=== PATIENT | female | born 1960 | race Caucasian/White ===

== ENCOUNTER 2017-04-07 15:46 | Emergency (ER) | payer MEDICAID ==
[~2017-04-07] VITALS: Ht 167.6 cm; Wt 108.0 kg
[~2017-04-07 15:46] MED LIST: AMOXICILLIN/PO500 MG PO; AMOXICILLIN500 MG PO; BACTRIM DS1 TAB PO; CELEXA40 M1 PO; CEPHALEXIN500 M1 PO; CIPROFLOXACN500 MG PO; CITALOPRAM40 MG PO; CYCLOBENZAPR10 MG OR; DIFLUCAN150 MG PO; FLEXERIL PO; HUMULIN SC; HYDROCO/APAP1 TA9 PO; HYDROXYCHLOROQ200 MG OR; HYDROXYCHLOROQ200 MG PO; INDOCIN50 MG/CAP PO; LANTUS100 MG/ML SC; LISINOPRIL20 M1 OR; LISINOPRIL20 MG PO; LOPID600 MG PO; LORTAB 10-325 M1 TAB PO; LUNESTA2 M2 OR; MELOXICAM7.5 MG PO; METFORMIN HCL1000 MG OR; METFORMIN HCL1000 MG PO; MULTI VIT PO; NAPROSYN500 MG PO; PERCOCET 10/31 COMBO PO; PRAVASTATIN SOD40 MG OR; PRAVASTATIN20 MG PO; PRAVASTATIN40 MG PO; ROBITUSSIN AC10 ML PO; STRATTERA25 MG PO; TRAMADOL HCL50 MG PO; ULTRAM50 M1 PO; WELLBUTRIN PO; WELLBUTRIN SR150 MG PO; WELLBUTRIN150 MG PO; XANAX0.5 MG PO
[2017-04-07] MEDS ORDERED: NOVOLIN R100 UNIT/M SC (16:19)
[2017-04-07 16:29] LABS: HEMOGLOBIN 13.7 g/dl (12.0-16.0); IMMATURE GRANULOCYTES 0.3 % (0.0-1.0); MEAN CORPUSCULAR HGB 28.1 pG CALC (26.0-32.0); MEAN CORPUSCULAR HGB CONC 33.4 g/L CALC (32.0-36.0); NEUT# 8.33 thou/uL (2.00-7.15); RED BLOOD COUNT 4.88 mill/uL (4.20-5.60); RED CELL DISTRI WIDTH 13.1 % (11.5-15.5)
[2017-04-07 16:35] LABS: ALBUMIN 4.6 g/dL (3.2-5.0); ALKALINE PHOSPHATASE 137 u/l (38-126); AMYLASE 32 u/l (30-110); ANION GAP 17 (6-22 (CALC)); BILIRUBIN, TOTAL 0.7 mg/dL (0.0-1.4); BUN 27 mg/dL (7-17); BUN/CREATININE RATIO 32 (12-20 (CALC)); CALCIUM 9.8 mg/dL (8.4-10.2); CARBON DIOXIDE 27 mmol/l (22-30); CHLORIDE 99 mmol/l (95-108); CREATININE 0.8 mg/dL (0.5-1.0); GFR > 60 ML/MIN (>=60 (CALC)); GFR FOR AFR.AMER. > 60 ML/MIN (>=60 (CALC)); GLUCOSE 245 mg/dL (65-105); LIPASE 31 u/l (23-300); POTASSIUM 4.2 mmol/l (3.5-5.1); SGOT/AST 20 u/l (14-36); SGPT/ALT 45 u/l (9-52); SODIUM 139 mmol/l (137-146)
[2017-04-07 16:43] LABS: URINE BILIRUBIN - DIPSTICK NEGATIVE (NEGATIVE); URINE BLOOD DIPSTICK TRACE-INTACT (NEGATIVE); URINE CLARITY TURBID; URINE COLOR YELLOW; URINE GLUCOSE - DIPSTICK 250 mg/dL (NEGATIVE); URINE KETONE NEGATIVE (NEGATIVE); URINE PROTEIN - DIPSTICK TRACE mg/dL (NEG-TRACE); URINE UROBILINOGEN - DIPSTICK 0.2 E.U./dL (0.2)
[2017-04-07 16:45] LABS: URINE LEUK ESTERASE SMALL (NEGATIVE); URINE NITRITE - DIPSTICK POSITIVE (Negative)
[2017-04-07 16:47] LABS: MYOGLOBIN 83 ng/mL (0 - 62)
[2017-04-07] MEDS ORDERED: NITROFURANTN100 MG PO (16:48)
[2017-04-07 16:51] LABS: URINE BACTERIA MANY hpf; URINE MUCUS FEW hpf (NONE-FEW); URINE SQUAMOUS EPITHELIAL CELL FEW EPI/hpf (0-FEW)
[2017-04-07] MEDS ORDERED: CIPROFLOXACN500 MG PO (18:03)
[2017-04-07] MEDS ORDERED: ZOFRAN ODT4 MG PO (18:03)
[2017-04-07] MEDS ORDERED: PREVACID30 M3 PO (18:03)
[2017-04-07 18:40] VITALS: BP 114/67
== END 2017-04-07 18:49 | disposition home or self-care (01) | DRG 445 ==
LOC: ED 15:46
PROVIDERS: Emergency Medicine
DX: K80.20 Calculus of gallbladder without cholecystitis without obstruction (principal); N39.0 Urinary tract infection, site not specified; I10 Essential (primary) hypertension; E11.9 Type 2 diabetes mellitus without complications; B96.20 Unspecified Escherichia coli [E. coli] as the cause of diseases classified elsewhere; M79.7 Fibromyalgia; Z79.4 Long term (current) use of insulin
CPT/HCPCS: Q9967

== ENCOUNTER 2017-07-14 23:38 | Emergency (ER) | payer MEDICAID ==
[~2017-07-14] VITALS: Ht 167.6 cm; Wt 107.2 kg
[~2017-07-14 23:38] MED LIST changes: +NITROFURANTN100 MG PO; +NOVOLIN R100 UNIT/M SC; +PREVACID30 M3 PO; +ZOFRAN ODT4 MG PO
[2017-07-15] MEDS ORDERED: GENTAMICIN0.3 % OS (00:31)
[2017-07-15 00:40] VITALS: BP 128/79
== END 2017-07-15 00:40 | disposition home or self-care (01) | DRG 125 ==
LOC: ED 23:38
DX: H10.9 Unspecified conjunctivitis (principal)

== ENCOUNTER 2017-07-31 20:44 | Emergency (ER) | payer MEDICAID ==
[~2017-07-31] VITALS: Ht 167.6 cm; Wt 105.8 kg
[~2017-07-31 20:44] MED LIST changes: +GENTAMICIN0.3 % OS; +LANTUS100 UNIT/M SC
[2017-07-31] MEDS ORDERED: HYDROXYCHLOR200 MG PO (21:09)
[2017-07-31] MEDS ORDERED: METFORMIN500 M2 PO (21:11)
[2017-07-31] MEDS ORDERED: LISINOP/HCTZ1 TA2 PO (21:11)
[2017-07-31] MEDS ORDERED: ATORVASTATIN CA40 MG PO (21:12)
[2017-07-31] MEDS ORDERED: BUPROPION HCL300 MG PO (21:13)
[2017-07-31] MEDS ORDERED: AMITRIPTYLIN100 MG PO (21:13)
[2017-07-31] MEDS ORDERED: PERCOCET 5/325M1 TAB PO (22:03)
[2017-07-31 22:26] VITALS: BP 117/71
== END 2017-07-31 22:26 | disposition home or self-care (01) | DRG 554 ==
LOC: ED 20:44
DX: M19.042 Primary osteoarthritis, left hand (principal); M79.641 Pain in right hand; M79.642 Pain in left hand

== ENCOUNTER 2017-08-25 10:10 | Emergency (ER) | payer MEDICAID ==
[~2017-08-25] VITALS: Ht 167.6 cm; Wt 106.0 kg
[~2017-08-25 10:10] MED LIST changes: +AMITRIPTYLIN100 MG PO; +ATORVASTATIN CA40 MG PO; +BUPROPION HCL300 MG PO; +HYDROXYCHLOR200 MG PO; +LISINOP/HCTZ1 TA2 PO; +METFORMIN500 M2 PO; +PERCOCET 5/325M1 TAB PO
[2017-08-25] MEDS ORDERED: MOTRIN400 MG PO (11:09)
[2017-08-25 11:15] VITALS: BP 121/78
== END 2017-08-25 11:15 | disposition home or self-care (01) | DRG 556 ==
LOC: ED 10:10
PROC: 2W3KX1Z Immobilization of Left Finger using Splint (ICD-10-PCS; principal; 2017-08-25)
DX: M79.645 Pain in left finger(s) (principal); E11.9 Type 2 diabetes mellitus without complications; I10 Essential (primary) hypertension; M79.7 Fibromyalgia; W01.198A Fall on same level from slipping, tripping and stumbling with subsequent striking against other object, initial encounter; Y92.002 Bathroom of unspecified non-institutional (private) residence as the place of occurrence of the external cause

== ENCOUNTER 2017-08-31 17:14 | Emergency (ER) | payer MEDICAID ==
[~2017-08-31] VITALS: Ht 167.6 cm; Wt 95.0 kg
[~2017-08-31 17:14] MED LIST changes: +MOTRIN400 MG PO
[2017-08-31] MEDS ORDERED: MOTRIN800 MG PO (17:24)
[2017-08-31] MEDS ORDERED: TRAMADOL HYDROC50 MG PO (17:24)
[2017-08-31 18:10] VITALS: BP 149/74
== END 2017-08-31 18:10 | disposition home or self-care (01) | DRG 605 ==
LOC: ED 17:14
DX: S40.011A Contusion of right shoulder, initial encounter (principal); W01.0XXA Fall on same level from slipping, tripping and stumbling without subsequent striking against object, initial encounter; Y93.01 Activity, walking, marching and hiking; Y92.007 Garden or yard of unspecified non-institutional (private) residence as the place of occurrence of the external cause

== ENCOUNTER 2017-12-15 11:00 | Emergency (ER) | payer MEDICAID ==
[~2017-12-15] VITALS: Ht 167.6 cm; Wt 103.0 kg
[~2017-12-15 11:00] MED LIST changes: +MOTRIN800 MG PO; +TRAMADOL HYDROC50 MG PO
[2017-12-15 11:32] LABS: URINE BILIRUBIN - DIPSTICK NEGATIVE (NEGATIVE); URINE BLOOD DIPSTICK NEGATIVE (NEGATIVE); URINE COLOR YELLOW; URINE GLUCOSE - DIPSTICK >=1000 mg/dL (NEGATIVE); URINE KETONE NEGATIVE (NEGATIVE); URINE PROTEIN - DIPSTICK NEGATIVE (NEG-TRACE); URINE UROBILINOGEN - DIPSTICK 0.2 E.U./dL (0.2)
[2017-12-15 11:37] LABS: URINE CLARITY CLOUDY; URINE LEUK ESTERASE SMALL (NEGATIVE); URINE NITRITE - DIPSTICK POSITIVE (Negative)
[2017-12-15 11:46] LABS: URINE BACTERIA MANY hpf; URINE SQUAMOUS EPITHELIAL CELL FEW EPI/hpf (0-FEW); URINE WBC 20-50 WBC/hpf (0-5)
[2017-12-15] MEDS ORDERED: SMZ-TMP DS1 TAB PO (11:57)
[2017-12-15] MEDS ORDERED: PYRIDIUM200 MG PO (11:57)
[2017-12-15 12:05] VITALS: BP 158/77
== END 2017-12-15 12:03 | disposition home or self-care (01) | DRG 690 ==
LOC: ED 11:00
PROVIDERS: Emergency Medicine
DX: N39.0 Urinary tract infection, site not specified (principal); B96.20 Unspecified Escherichia coli [E. coli] as the cause of diseases classified elsewhere; M54.5 Low back pain; R30.0 Dysuria; R35.0 Frequency of micturition

== ENCOUNTER 2018-01-02 14:48 | Inpatient (IN) | payer MEDICAID ==
[~2018-01-02] VITALS: Ht 165.1 cm; Wt 103.0 kg
[~2018-01-02 14:48] MED LIST changes: +PYRIDIUM200 MG PO; +SMZ-TMP DS1 TAB PO
--- NOTE | 2018-01-02 14:55 | NUR ---
PATIENT AMBULATED TO ROOM WITH STEADY GAIT AND PHYSICIAN NOTIFIED OF PATIENT STATUS
[2018-01-02 16:04] LABS: URINE BILIRUBIN - DIPSTICK NEGATIVE (NEGATIVE); URINE BLOOD DIPSTICK LARGE (NEGATIVE); URINE COLOR YELLOW; URINE GLUCOSE - DIPSTICK >=1000 mg/dL (NEGATIVE); URINE KETONE NEGATIVE (NEGATIVE); URINE NITRITE - DIPSTICK NEGATIVE (Negative); URINE PROTEIN - DIPSTICK 100 mg/dL (NEG-TRACE); URINE SPECIFIC GRAVITY 1.025; URINE UROBILINOGEN - DIPSTICK 0.2 E.U./dL (0.2)
[2018-01-02 16:06] LABS: URINE CLARITY CLOUDY; URINE LEUK ESTERASE SMALL (NEGATIVE)
[2018-01-02 16:10] LABS: HEMATOCRIT 35.9 % (37.0-47.0); HEMOGLOBIN 12.1 g/dl (12.0-16.0); IMMATURE GRANULOCYTES 0.3 % (0.0-1.0); MEAN CELL VOLUME 82.3 fL CALC (80.0-100.0); MEAN CORPUSCULAR HGB 27.8 pG CALC (26.0-32.0); MEAN CORPUSCULAR HGB CONC 33.7 g/L CALC (32.0-36.0); NEUT# 9.36 thou/uL (2.00-7.15); RED BLOOD COUNT 4.36 mill/uL (4.20-5.60); RED CELL DISTRI WIDTH 12.6 % (11.5-15.5)
[2018-01-02 16:13] LABS: URINE BACTERIA FEW hpf; URINE SQUAMOUS EPITHELIAL CELL FEW EPI/hpf (0-FEW); URINE WBC >100 WBC/hpf (0-5)
[2018-01-02 16:22] LABS: ALBUMIN 3.7 g/dL (3.2-5.0); ALKALINE PHOSPHATASE 142 u/l (38-126); ANION GAP 18 (6-22 (CALC)); BILIRUBIN, TOTAL 0.4 mg/dL (0.0-1.4); BUN 18 mg/dL (7-17); BUN/CREATININE RATIO 25 (12-20 (CALC)); CARBON DIOXIDE 24 mmol/l (22-30); CHLORIDE 100 mmol/l (95-108); CREATININE 0.7 mg/dL (0.5-1.0); GFR > 60 ML/MIN (>=60 (CALC)); GFR FOR AFR.AMER. > 60 ML/MIN (>=60 (CALC)); LIPASE 40 u/l (23-300); SGOT/AST 20 u/l (14-36); SGPT/ALT 42 u/l (9-52); SODIUM 138 mmol/l (137-146); TOTAL PROTEIN 6.6 g/dL (6.3-8.2)
--- NOTE | 2018-01-02 17:30 | NUR ---
PT HAS RECEIVED TORADOL AND ZOFRAN AND IVF UPON ARRIVAL. LATER, PT RECEIVED ROCEPHIN FOR UTI. PT AWARE OF POSSIBLE ADMISSION.
[2018-01-02] MEDS ORDERED: NABUMETONE500 MG PO (17:59)
[2018-01-02] MEDS ORDERED: CYMBALTA30 MG PO (18:00)
--- NOTE | 2018-01-02 18:10 | NUR ---
PT TRANSFERRED TO FLOOR VIA STRETCHER ACCOMPANIED BY JARODRN;PT AMBULATED WITH A STEADY GAIT TO STANDING SCALE AND BEDSIDE;VS AND WT OBTAINED;PT REPORTS HAVING A UTI FOR A FEW WEEKS,SHE WAS STARTED ON ABX FROM [facility] ER BUT S/S CONTINUED;PT VOICES NO COMPLAINTS OF PAIN OR DISCOMFORTS AND IS EDUCATED ON PAIN SCALE AND REPORTING;A&O X3;ASSESSMENT COMPLETED;RESPIRATIONS EVEN AND UNLABORED ON RA,CLEAR DIMINISHED LUNG SOUNDS NOTED;ABDOMEN DISTENDED/SOFT ON PALPATION AND HYPO ACTIVE IN ALL 4 QUADRANTS;WEAK PEDAL PULSES NOTED;#20G TO LAC INFUSING A NS BOLUS WITH EASE,SITE APPEARS HEALTHY;PT DENIES A GOWN AT THIS TIME;LAST BM 01/02/18;SAFETY PRECAUTIONS REINFORCED;PT ENCOURAGED TO CALL FOR ASSISTANCE IF NEEDED;POC DISCUSSED;BED IN THE LOWEST POSITION WITH CALL LIGHT IN REACH;WILL CONTINUE TO MONITOR
--- NOTE | 2018-01-02 18:15 | NUR ---
PT TAKEN TO ROOM 283 BY WHEELCHAIR. NO DISTRESS NOTED.
[2018-01-02 18:50] VITALS: BP 150/82
--- NOTE | 2018-01-02 19:00 | NUR ---
RECEIVED CHANGE OF SHIFY REPORT FROM SY CARABALLO. PATIENT ALERT AND ORIENTED AND AMBULATING IN ROOM. NO APPARENT ACUTE DISTRES NOTED. WILL CONTINUE TO MONITOR.
--- NOTE | 2018-01-03 | NUR ---
PATIENT RESTING QUIETLY IN BED WITH EYES CLOSED AND APPEARS TO BE ASLEEP. RESP EVEN AND NON-LABORED. NO APPARENT ACUTE DISTRESS NOTED. WILL CONTINUE TO MONITOR.
--- NOTE | 2018-01-03 04:00 | NUR ---
PATIENT RESTING QUIETLY AT THIS TIME. NO APPARENT ACUTE CHANGES NOTED IN PT'S CONDITION.
[2018-01-03 04:20] VITALS: BP 130/77
[2018-01-03 06:37] LABS: HEMATOCRIT 36.9 % (37.0-47.0); HEMOGLOBIN 12.2 g/dl (12.0-16.0); MEAN CELL VOLUME 83.9 fL CALC (80.0-100.0); MEAN CORPUSCULAR HGB 27.7 pG CALC (26.0-32.0); MEAN CORPUSCULAR HGB CONC 33.1 g/L CALC (32.0-36.0); RED BLOOD COUNT 4.4 mill/uL (4.20-5.60); RED CELL DISTRI WIDTH 12.7 % (11.5-15.5)
[2018-01-03 06:56] LABS: ANION GAP 14 (6-22 (CALC)); BUN 15 mg/dL (7-17); BUN/CREATININE RATIO 22 (12-20 (CALC)); CARBON DIOXIDE 27 mmol/l (22-30); CHLORIDE 107 mmol/l (95-108); CREATININE 0.7 mg/dL (0.5-1.0); GFR > 60 ML/MIN (>=60 (CALC)); GFR FOR AFR.AMER. > 60 ML/MIN (>=60 (CALC)); SODIUM 144 mmol/l (137-146)
[2018-01-03 07:45] VITALS: BP 145/60
--- NOTE | 2018-01-03 07:45 | NUR ---
PT IS RELAXING IN BED WITH NO DISTRESS NOTED. IV SITE IS FREE FROM REDNESS OR EDEMA. CONTINUE TO OBSERVE AND MONITOR. HR IS REG, PULSES ARE STRONG X4, ABD IS SOFT WITH ACTIVE BS
--- NOTE | 2018-01-03 12:45 | NUR ---
PT IS RELAXING IN BED WITH NO DISTRESS NOTED. IV SITE IS FREE FROM REDNESS OR EDEMA. CONTINUE TO OBSERVE AND MONITOR.
[2018-01-03 16:31] VITALS: BP 157/79
--- NOTE | 2018-01-03 16:44 | NUR ---
PT IS RELAXING IN BED FAMILY IN THE ROOM WITH HER AND ALSO HER DOG WHO HAS PAPERS. IV SITE IS FREE FROM REDNESS OR EDEMA . FAMILY WILL TAKE DOG BACK HOME. CONTINUE TO OSBERVE AND MONITOR.
[2018-01-03 19:14] VITALS: BP 142/77
--- NOTE | 2018-01-03 19:45 | NUR ---
PT.IS IN BED W/FAMILY SITTING ON END OF BED VISITING, IV FLUIDS ARE RUNNING NS@125. PT.EXPRESSES CONCERN THAT THE DOCTOR HAS NOT CONTINUED HER HOME MEDICATIONS, SHE STATES THAT SHE MENTIONED THIS TO THE DOCTOR EARLIER THIS DAY. PT.DENIES ANY OTHER NEEDS AT THIS TIME. LEFT PT.SITTING ON SIDE OF BED W/CALL LIGHT AT SIDE.
--- NOTE | 2018-01-03 23:09 | NUR ---
PT.CALLED TO REQUEST SOMETHING TO EAT/PROVIDED SNACK AT THIS TIME.
--- NOTE | 2018-01-04 03:21 | NUR ---
PT.IS SLEEPING W/TV AND LIGHTS OFF AT THIS TIME, NO S/S OF DISTRESS, CALL LIGHT W/IN REACH
[2018-01-04 04:30] VITALS: BP 152/89
--- NOTE | 2018-01-04 04:50 | NUR ---
IV FLUIDS REPLENISHED, PT.IS SLEEPING SOUNDLY, BUT AWOKE TO MY VOICE AFTER A MINUTE. PT.DENIES ANY NEEDS, IV FLUIDS RUNNING, CALL LIGHT AT SIDE.
[2018-01-04 08:10] VITALS: BP 179/103
--- NOTE | 2018-01-04 08:10 | NUR ---
ASSESSMENT IS COMPLTED: IV SITE IS FREE FROM REDNESS OR EDEMA. HR IS REG, PULSES ARE STRONG X4,ABD IS SOFT WITH ACTIVE BS. CONTINUE TO OSBERVE AND MONITOR.
--- NOTE | 2018-01-04 12:15 | NUR ---
PT HAS BEEN RELAXING ON THE SIDE OF THE BED. CONTINUES WITH HER DOG ON THE BED WAS ABLE TO TAKE THE DOG OUT SIDE WITH ASSISTANCE FROM ADDING MACHINE OPERATOR. IV SITE IS FREE FROM REDNESS OR EDEMA. TOOK A SHOWER THIS AM. CONTINUE TO OBSERVE AND MONITOR.
[2018-01-04 15:25] VITALS: BP 148/94
--- NOTE | 2018-01-04 15:32 | NUR ---
PT IS RELAXING NOW SINCE PAIN MEDICATIONS WERE GIVEN. IV SITE IS FREE FROM REDNESS OR EDEMA.
--- NOTE | 2018-01-04 18:45 | NUR ---
PT IS SITTING UP ON THE SIDE OF THE BED, NO DISTRESS NOTED. IV SITE IS FREE FROM REDNESS OR EDEMA.
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
[2018-01-04 20:00] VITALS: BP 167/91
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
--- NOTE | 2018-01-05 00:08 | NUR ---
PT. MEDICATED FOR PAIN REPORTED AT A 7/10 IN HER BACK ON THE PAIN SCALE. IS AT BEDSIDE, THEY ARE SHOWING ME PICTURES OF THEIR 30 DOGS THAT THEY HAVE AT HOME. PT.LEFT SITTING ON SIDE OF BED W/ AT BEDSIDE AND DOG AT FOOT OF HER BED UNDER THE COVERS. CALL LIGHT IS W/IN REACH AND PT.INSTRUCTED TO CALL IF ANY NEEDS ARISE.
[2018-01-05 04:18] VITALS: BP 157/101
--- NOTE | 2018-01-05 04:18 | NUR ---
PT.V/S ASSESSED AND PT.BACK TO SLEEP AT THIS TIME. CALL LIGHT IS AT SIDE AND NO S/S OF DISTRESS.
[2018-01-05 05:31] LABS: HEMATOCRIT 33.6 % (37.0-47.0); HEMOGLOBIN 11.5 g/dl (12.0-16.0); MEAN CELL VOLUME 83.6 fL CALC (80.0-100.0); MEAN CORPUSCULAR HGB 28.6 pG CALC (26.0-32.0); MEAN CORPUSCULAR HGB CONC 34.2 g/L CALC (32.0-36.0); RED BLOOD COUNT 4.02 mill/uL (4.20-5.60); RED CELL DISTRI WIDTH 12.5 % (11.5-15.5)
--- NOTE | 2018-01-05 05:49 | NUR ---
PT.IV ANTIBIOTIC THERAPY ADMINISTERED AT THIS TIME. PT.REQUESTED PAIN MEDICATION. DENIES ANY OTHER NEEDS.
[2018-01-05 05:58] LABS: ALBUMIN 3.4 g/dL (3.2-5.0); ANION GAP 17 (6-22 (CALC)); BILIRUBIN, TOTAL 0.3 mg/dL (0.0-1.4); BUN 17 mg/dL (7-17); BUN/CREATININE RATIO 20 (12-20 (CALC)); CARBON DIOXIDE 25 mmol/l (22-30); CHLORIDE 105 mmol/l (95-108); CREATININE 0.8 mg/dL (0.5-1.0); GFR > 60 ML/MIN (>=60 (CALC)); GFR FOR AFR.AMER. > 60 ML/MIN (>=60 (CALC)); POTASSIUM 3.8 mmol/l (3.5-5.1); SGOT/AST 20 u/l (14-36); SGPT/ALT 36 u/l (9-52); SODIUM 142 mmol/l (137-146); TOTAL PROTEIN 6.4 g/dL (6.3-8.2)
[2018-01-05 06:09] LABS: ALKALINE PHOSPHATASE 126 u/l (38-126)
--- NOTE | 2018-01-05 06:09 | NUR ---
PT.MEDICATED FOR PAIN REPORTED @7/10 ON PAIN SCALE. PT.IS AWAKE AND WATCHING TV W/LIGHTS ON.
[2018-01-05 07:50] VITALS: BP 190/82
--- NOTE | 2018-01-05 07:50 | NUR ---
PT HAS BEEN RESTING IN BED WITH NO DISTRESS NOTED. IV SITE IS FREE FROM REDNESS OR EDEMA. CONTINUE TO OSBERVE ADN MONITOR. HR IS REG, PULSES ARE STRONG. ABD IS SOFT WITH ACTIVE BS.
[2018-01-05 10:31] VITALS: BP 155/79
--- NOTE | 2018-01-05 12:00 | NUR ---
PT IS RELAXING IN BED , DOG REMAINS IN THE ROOM. IV SITE IS FREE FROM REDNESS OR EDEMA. FAMILY DID VISIT WITH PT THIS AM.
[2018-01-05 15:10] VITALS: BP 128/79
--- NOTE | 2018-01-05 16:00 | NUR ---
PT IS RELAXING IN BED WITH MO DISTRESS NOTED. IV SITE IS FREE FROM REDNESS OR EDEMA.
--- NOTE | 2018-01-05 16:14 | NUR ---
PT 'S IV SITE WAS LOOSE , RECOMMENDED TO BE CHANGED. PT AGREED. NEW IV SITE PLACED IN RAC #22 PT TOLERATED WELL.
--- NOTE | 2018-01-05 16:30 | NUR ---
PT IS RELAXING IN BED WITH NO DISTRESS NOTED. IV SITE IS FREE FROM REDNESS OR EDEMA.
[2018-01-05 18:48] VITALS: BP 145/82
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
--- NOTE | 2018-01-05 23:57 | NUR ---
PT.MEDICATED W/ANTIBIOTIC IV THERAPY ORDERED. PT.IS SITTING ON SIDE OF THE BED WORKING ON COMPUTER. PT.DENIES ANY NEEDS AT THIS TIME. V/S ARE BEING ASSESSED, WILL FOLLOW-UP NEEDED.
--- NOTE | 2018-01-06 01:19 | NUR ---
PT.MEDICATED FOR PAIN 04/15 IN HER BACK. LIGHTS ARE OFF AND TV ON, PT.APPEARS TO BE TRYING TO SLEEP. BED IN LOWEST POSITION AND IV FLUIDS ARE RUNNING ORDERED.
[2018-01-06 04:00] VITALS: BP 111/66
--- NOTE | 2018-01-06 04:55 | NUR ---
PT.IS IN BED SLEEPING, REPORTS HAVING SLEPT WELL OVER NIGHT. V/S ASSESSED AND IV PUMP CLEARED. PT.DENIES ANY NEEDS AT THIS TIME, CALL LIGHT IS W/IN REACH.
[2018-01-06 05:21] LABS: HEMATOCRIT 33.5 % (37.0-47.0); HEMOGLOBIN 11.2 g/dl (12.0-16.0); IMMATURE GRANULOCYTES 0.4 % (0.0-1.0); MEAN CELL VOLUME 83.3 fL CALC (80.0-100.0); MEAN CORPUSCULAR HGB 27.9 pG CALC (26.0-32.0); MEAN CORPUSCULAR HGB CONC 33.4 g/L CALC (32.0-36.0); NEUT# 4.5 thou/uL (2.00-7.15); RED BLOOD COUNT 4.02 mill/uL (4.20-5.60); RED CELL DISTRI WIDTH 12.7 % (11.5-15.5)
--- NOTE | 2018-01-06 07:00 | NUR ---
BEDSIDE REPORT RECEIVED BY DOMINICK. PT IS RESTING IN BED AND DENIES NEEDS AT THIS TIME.CALL LIGHT IN REACH.
[2018-01-06 07:48] VITALS: BP 164/75
--- NOTE | 2018-01-06 08:00 | NUR ---
PT IS SITTING IN RECLINER. ASSESSMENT DONE. LUNG SOUND CLEAR/DIMINISHED. PT DENIES PAIN AT THIS TIME. NS INFUSING WELL. SAFETY PRECAUTIONS REINFORCED AND CALL LIGHT IN REACH.
--- NOTE | 2018-01-06 12:00 | NUR ---
PT IS SITTING IN THE SIDE OF THE BED EATING HER LUNCH WITH NO S/S OF DISTRESS NOTED. PT STATED THAT SHE HAS BACK PAIN BUT IS REFUSING PAIN MEDICATION AT THIS TIME. PT DENIES ANY OTHER NEEDS AT THIS TIME. PT DOG SERVICE AT SIDE. CALL LIGHT IN REACH.
--- NOTE | 2018-01-06 16:28 | NUR ---
PT IS ON HER LEFT SIDE IN BED. MEDICATED PT WITH LORTAB FOR PAIN SEE EMAR. PT DENIES ANY OTHER NEEDS AT THIS TIME. CALL LIGHT IN REACH.
[2018-01-06 17:04] VITALS: BP 158/75
--- NOTE | 2018-01-06 19:30 | NUR ---
PATIENT SITTING ON THE SIDE OF THE BED-AWAKE ALERT AND ORIENTEDX3. IVF NS PATENT AND INFUSING VIA RIGHT AC SITE. SITE APPEARS HEALTHY AT THIS TIME. PATIENT DENIES ANY DIFFICULTY OR PAIN WITH URINATION. CALL LIGHT IN REACH. WILL CONT TO MONITOR.
[2018-01-06 20:16] VITALS: BP 158/87
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
--- NOTE | 2018-01-06 23:27 | NUR ---
PATIENT RESTING IN BED POSITIONED ON HER SIDE WITH EYES CLOSED. APPEARS SLEEPING IN NO ACUTE DISTRESS. IVF PATENT AND INFUSING AT 125CC/HR VIA RIGHT HAND SITE. SITE APPEARS HEALTHY AT THIS TIME. CALL LIGHT IN REACH. WILL CONT TO MONITOR.
--- NOTE | 2018-01-06 23:30 | NUR ---
PATIENT RESTING IN BED ON HER SIDE WITH EYES CLOSED. APPEARS SLEEPING IN NO ACUTE DISTRESS. IVF PATENT AND INFUSING AT 125CC/HR VIA RIGHT AC SITE-SITE APPEARS HEALTHY AT THIS TIME. CALL LIGHT IN REACH. WILL CONT TO MONITR.
[2018-01-07 00:17] VITALS: BP 139/72
--- NOTE | 2018-01-07 04:00 | NUR ---
PATIENT APPEARS SLEEPING AT THIS TIME. IVF PATENT AND INFUSING AT 125CC/HR VIA RIGHT AC SITE. CALL LIGHT IN REACH. WILL CONT TO MONITOR.
[2018-01-07 04:16] VITALS: BP 143/80
[2018-01-07 05:39] LABS: HEMATOCRIT 36.7 % (37.0-47.0); HEMOGLOBIN 11.9 g/dl (12.0-16.0); IMMATURE GRANULOCYTES 0.6 % (0.0-1.0); MEAN CELL VOLUME 85.7 fL CALC (80.0-100.0); MEAN CORPUSCULAR HGB 27.8 pG CALC (26.0-32.0); MEAN CORPUSCULAR HGB CONC 32.4 g/L CALC (32.0-36.0); NEUT# 2.93 thou/uL (2.00-7.15); RED BLOOD COUNT 4.28 mill/uL (4.20-5.60); RED CELL DISTRI WIDTH 12.8 % (11.5-15.5)
[2018-01-07 05:50] LABS: ANION GAP 16 (6-22 (CALC)); BUN 12 mg/dL (7-17); BUN/CREATININE RATIO 18 (12-20 (CALC)); CARBON DIOXIDE 25 mmol/l (22-30); CHLORIDE 104 mmol/l (95-108); CREATININE 0.7 mg/dL (0.5-1.0); GFR > 60 ML/MIN (>=60 (CALC)); GFR FOR AFR.AMER. > 60 ML/MIN (>=60 (CALC)); MAGNESIUM 1.7 mg/dL (1.6-2.3); SODIUM 141 mmol/l (137-146)
--- NOTE | 2018-01-07 07:15 | NUR ---
REPORT RECEIVED BY ANGELICA BAUER. PT IS RESTING IN BED WITH NO S/S OF DISTRESS NOTED. CALL LIGHT IN REACH.
[2018-01-07 07:56] VITALS: BP 166/81
--- NOTE | 2018-01-07 08:00 | NUR ---
PT IS SITTING IN THE SIDE OF THE BED. ASSESSMENT DONE. LUNG SOUND CLEAR/DIMINISHED. #22 RAC THAT APPEARS HEALTHY AND NS INFUSING WELL. PT STATED THAT SHE HAS BACK PAIN BUT REFUSED PAIN MEDICATION AT THIS TIME. DOG SERVICE AT SIDE. REINFORCED SAFETY PRECAUTIONS AND CALL LIGHT IN REACH.
[2018-01-07 08:17] VITALS: BP 166/81
--- NOTE | 2018-01-07 12:00 | NUR ---
PT IS SITTING IN THE SIDE OF THE BED EATING HER LUNCH. PT DENIES NEEDS AT THIS TIME. CALL LIGHT IN REACH.
[2018-01-07] MEDS ORDERED: INVANZ1 GM IV (13:15)
--- NOTE | 2018-01-07 13:15 | NUR ---
QUINTIN FROM X-RAY CALLED RE: PT REFUSED PICC LINE. PT COMING BACK TO ROOM.
--- NOTE | 2018-01-07 14:55 | NUR ---
Discharge instructions given. Patient verbalizes understanding of same. Discharged in stable condition via Wheelchair to Home with staff. All belongings sent with pt.
[2018-01-08] MEDS ORDERED: LORTAB 1010 MG PO (19:46)
[2018-01-08] MEDS ORDERED: FLEXERIL PO (19:46)
== END 2018-01-07 15:00 | disposition home or self-care (01) | DRG 690 ==
LOC: ED 14:48 → ED-I 17:10 → ED 17:30 → MS2 17:31
PROVIDERS: Family Medicine; Internal Medicine; Nurse Practitioner Family; ADMIT Internal Medicine; ATTEND Internal Medicine
DX: N12 Tubulo-interstitial nephritis, not specified as acute or chronic (principal); E11.65 Type 2 diabetes mellitus with hyperglycemia; B96.20 Unspecified Escherichia coli [E. coli] as the cause of diseases classified elsewhere; F43.10 Post-traumatic stress disorder, unspecified; F32.9 Major depressive disorder, single episode, unspecified; I10 Essential (primary) hypertension; M19.90 Unspecified osteoarthritis, unspecified site; E78.5 Hyperlipidemia, unspecified; Z91.14 Patient's other noncompliance with medication regimen; Z16.12 Extended spectrum beta lactamase (ESBL) resistance; Z79.84 Long term (current) use of oral hypoglycemic drugs
CPT/HCPCS: J1335; Q9967

== ENCOUNTER 2018-01-08 18:33 | Emergency (ER) | payer MEDICAID ==
[~2018-01-08] VITALS: Ht 165.1 cm; Wt 103.2 kg
[~2018-01-08 18:33] MED LIST changes: +CYMBALTA30 MG PO; +INVANZ1 GM IV; +NABUMETONE500 MG PO
[2018-01-08] MEDS ORDERED: LORTAB 1010 MG PO (19:46)
[2018-01-08] MEDS ORDERED: FLEXERIL PO (19:46)
[2018-01-08 20:10] VITALS: BP 155/82
== END 2018-01-08 20:10 | disposition home or self-care (01) | DRG 563 ==
LOC: ED 18:33
DX: S83.92XA Sprain of unspecified site of left knee, initial encounter (principal); M17.11 Unilateral primary osteoarthritis, right knee; E11.9 Type 2 diabetes mellitus without complications; I10 Essential (primary) hypertension; Y92.009 Unspecified place in unspecified non-institutional (private) residence as the place of occurrence of the external cause; W18.30XA Fall on same level, unspecified, initial encounter

== ENCOUNTER 2018-02-04 11:52 | Emergency (ER) | payer MEDICAID ==
[~2018-02-04] VITALS: Ht 165.1 cm; Wt 100.2 kg
[~2018-02-04 11:52] MED LIST changes: +LORTAB 1010 MG PO
[2018-02-04 12:51] LABS: HEMATOCRIT 38.3 % (37.0-47.0); HEMOGLOBIN 12.8 g/dl (12.0-16.0); IMMATURE GRANULOCYTES 0.4 % (0.0-1.0); MEAN CELL VOLUME 82.4 fL CALC (80.0-100.0); MEAN CORPUSCULAR HGB 27.5 pG CALC (26.0-32.0); MEAN CORPUSCULAR HGB CONC 33.4 g/L CALC (32.0-36.0); NEUT# 7.2 thou/uL (2.00-7.15); RED BLOOD COUNT 4.65 mill/uL (4.20-5.60); RED CELL DISTRI WIDTH 12.8 % (11.5-15.5)
[2018-02-04 13:02] LABS: INFLUENZA A NONE DETECTED (NONE DETECT); INFLUENZA B NONE DETECTED (NONE DETECT)
[2018-02-04 13:06] LABS: ALBUMIN 3.8 g/dL (3.2-5.0); ALKALINE PHOSPHATASE 144 u/l (38-126); ANION GAP 20 (6-22 (CALC)); BILIRUBIN, TOTAL 0.7 mg/dL (0.0-1.4); BUN 21 mg/dL (7-17); BUN/CREATININE RATIO 20 (12-20 (CALC)); CARBON DIOXIDE 22 mmol/l (22-30); CHLORIDE 96 mmol/l (95-108); GFR 57 ML/MIN (>=60 (CALC)); GFR FOR AFR.AMER. > 60 ML/MIN (>=60 (CALC)); POTASSIUM 4.2 mmol/l (3.5-5.1); SGOT/AST 29 u/l (14-36); SGPT/ALT 45 u/l (9-52); SODIUM 134 mmol/l (137-146); TOTAL PROTEIN 7.1 g/dL (6.3-8.2)
[2018-02-04 13:28] LABS: URINE BLOOD DIPSTICK MODERATE (NEGATIVE); URINE GLUCOSE - DIPSTICK 250 mg/dL (NEGATIVE); URINE KETONE 15 mg/dL (NEGATIVE); URINE NITRITE - DIPSTICK NEGATIVE (Negative); URINE PH 5.5 (4.5-8.0); URINE PROTEIN - DIPSTICK 100 mg/dL (NEG-TRACE); URINE SPECIFIC GRAVITY >=1.030
[2018-02-04 13:31] LABS: URINE BILIRUBIN - DIPSTICK SMALL (NEGATIVE); URINE CLARITY CLOUDY; URINE COLOR DK. YELLOW; URINE LEUK ESTERASE LARGE (NEGATIVE)
[2018-02-04 13:35] LABS: URINE BACTERIA MODERATE hpf; URINE EPITHELIAL CELLS MANY EPI/hpf (0-FEW); URINE WBC 50-100 WBC/hpf (0-5)
[2018-02-04] MEDS ORDERED: KEFLEX500 M1 PO (13:48)
[2018-02-04 14:11] VITALS: BP 138/72
== END 2018-02-04 14:11 | disposition home or self-care (01) | DRG 690 ==
LOC: ED 11:52
DX: N39.0 Urinary tract infection, site not specified (principal); M79.1 Myalgia; B96.1 Klebsiella pneumoniae [K. pneumoniae] as the cause of diseases classified elsewhere; Z16.12 Extended spectrum beta lactamase (ESBL) resistance; R50.9 Fever, unspecified; R05 Cough

== ENCOUNTER 2018-03-12 11:56 | Emergency (ER) | payer MEDICAID ==
[~2018-03-12] VITALS: Ht 165.1 cm; Wt 97.6 kg
[~2018-03-12 11:56] MED LIST changes: +KEFLEX500 M1 PO
[2018-03-12] MEDS ORDERED: HYDROCO/APAP1 TA9 PO (14:48)
[2018-03-12 15:03] VITALS: BP 123/71
== END 2018-03-12 15:05 | disposition home or self-care (01) | DRG 914 ==
LOC: ED 11:56
DX: S39.92XA Unspecified injury of lower back, initial encounter (principal); E11.9 Type 2 diabetes mellitus without complications; I10 Essential (primary) hypertension; F43.10 Post-traumatic stress disorder, unspecified; W16.012A Fall into swimming pool striking water surface causing other injury, initial encounter; Y93.H9 Activity, other involving exterior property and land maintenance, building and construction; Y92.008 Other place in unspecified non-institutional (private) residence as the place of occurrence of the external cause

== ENCOUNTER 2018-08-16 22:14 | Emergency (ER) | payer MEDICAID ==
[~2018-08-16] VITALS: Ht 165.1 cm; Wt 105.2 kg
[~2018-08-16 22:14] MED LIST changes: +FLEXERIL5 M1 PO; +HYDROXYCHLOR200 M1 PO; +LISINOPRIL5 MG PO; +PERCOGESI1 PO; +PREMPRO1 TAB PO
[2018-08-16 22:24] VITALS: BP 141/77
[2018-08-16] MEDS ORDERED: CIPROFLOXACN500 MG PO (22:28)
[2018-08-16] MEDS ORDERED: BACTRIM DS1 TAB PO (23:02)
== END 2018-08-16 23:10 | disposition home or self-care (01) ==
LOC: ED 22:14
DX: J01.90 Acute sinusitis, unspecified (principal); L03.031 Cellulitis of right toe; I10 Essential (primary) hypertension; E11.40 Type 2 diabetes mellitus with diabetic neuropathy, unspecified; F43.10 Post-traumatic stress disorder, unspecified; R05 Cough; R51 Headache; R09.81 Nasal congestion

== ENCOUNTER 2018-09-13 07:47 | Emergency (ER) | payer MEDICAID ==
[~2018-09-13] VITALS: Ht 165.1 cm; Wt 200.0 kg
[2018-09-13 08:49] LABS: HEMOGLOBIN 12.1 g/dl (12.0-16.0); IMMATURE GRANULOCYTES 0.4 % (0.0-5.0); MEAN CELL VOLUME 84.1 fL CALC (80.0-100.0); MEAN CORPUSCULAR HGB 27.5 pG CALC (26.0-32.0); MEAN CORPUSCULAR HGB CONC 32.7 g/L CALC (32.0-36.0); NEUT# 6.87 thou/uL (2.00-7.15); RED BLOOD COUNT 4.4 mill/uL (4.20-5.60); RED CELL DISTRI WIDTH 12.8 % (11.5-15.5)
[2018-09-13 09:03] LABS: ANION GAP 17 (6-22 (CALC)); BUN 26 mg/dL (7-17); BUN/CREATININE RATIO 30 (12-20 (CALC)); CARBON DIOXIDE 22 mmol/l (22-30); CHLORIDE 105 mmol/l (95-108); CREATININE 0.8 mg/dL (0.5-1.0); GFR > 60 ML/MIN (>=60 (CALC)); GFR FOR AFR.AMER. > 60 ML/MIN (>=60 (CALC)); POTASSIUM 4.3 mmol/l (3.5-5.1); SODIUM 140 mmol/l (137-146)
[2018-09-13 09:50] VITALS: BP 117/56
== END 2018-09-13 09:51 | disposition home or self-care (01) ==
LOC: ED 07:47
PROVIDERS: Family Medicine
DX: R42 Dizziness and giddiness (principal); I10 Essential (primary) hypertension; F43.10 Post-traumatic stress disorder, unspecified; E11.40 Type 2 diabetes mellitus with diabetic neuropathy, unspecified

== ENCOUNTER 2018-09-23 18:27 | Observation (INO) | payer MEDICAID ==
[~2018-09-23] VITALS: Ht 165.1 cm; Wt 101.0 kg
[2018-09-23 19:31] LABS: HEMATOCRIT 35.9 % (37.0-47.0); HEMOGLOBIN 12.1 g/dl (12.0-16.0); IMMATURE GRANULOCYTES 0.5 % (0.0-5.0); MEAN CELL VOLUME 82.2 fL CALC (80.0-100.0); MEAN CORPUSCULAR HGB 27.7 pG CALC (26.0-32.0); MEAN CORPUSCULAR HGB CONC 33.7 g/L CALC (32.0-36.0); NEUT# 11.34 thou/uL (2.00-7.15); RED BLOOD COUNT 4.37 mill/uL (4.20-5.60); RED CELL DISTRI WIDTH 12.8 % (11.5-15.5)
[2018-09-23 19:43] LABS: ALBUMIN 4.1 g/dL (3.2-5.0); ALKALINE PHOSPHATASE 164 u/l (38-126); AMYLASE 42 u/l (30-110); ANION GAP 12 (6-22 (CALC)); BILIRUBIN, TOTAL 0.5 mg/dL (0.0-1.4); BUN 20 mg/dL (7-17); BUN/CREATININE RATIO 30 (12-20 (CALC)); CARBON DIOXIDE 26 mmol/l (22-30); CHLORIDE 102 mmol/l (95-108); CREATININE 0.7 mg/dL (0.5-1.0); GFR > 60 ML/MIN (>=60 (CALC)); GFR FOR AFR.AMER. > 60 ML/MIN (>=60 (CALC)); LIPASE 18 u/l (23-300); POTASSIUM 4.4 mmol/l (3.5-5.1); SGOT/AST 20 u/l (14-36); SODIUM 136 mmol/l (137-146); TOTAL PROTEIN 7.8 g/dL (6.3-8.2)
[2018-09-23 19:55] LABS: MYOGLOBIN 103 ng/mL (0 - 62)
[2018-09-23 21:08] LABS: URINE BILIRUBIN - DIPSTICK NEGATIVE (NEGATIVE); URINE BLOOD DIPSTICK TRACE-LYSED (NEGATIVE); URINE COLOR YELLOW; URINE GLUCOSE - DIPSTICK >=1000 mg/dL (NEGATIVE); URINE KETONE NEGATIVE (NEGATIVE); URINE LEUK ESTERASE NEGATIVE (NEGATIVE); URINE PH 6.5 (4.5-8.0); URINE PROTEIN - DIPSTICK NEGATIVE (NEG-TRACE); URINE SPECIFIC GRAVITY 1.015; URINE UROBILINOGEN - DIPSTICK 0.2 E.U./dL (0.2)
[2018-09-23 21:09] LABS: URINE NITRITE - DIPSTICK POSITIVE (Negative)
[2018-09-23 21:17] VITALS: BP 138/76
[2018-09-23 21:20] LABS: URINE BACTERIA MODERATE hpf; URINE SQUAMOUS EPITHELIAL CELL FEW EPI/hpf (0-FEW)
[2018-09-24] VITALS (7 sets, daily range): BP systolic 126–183; BP diastolic 58–99
[2018-09-25 03:41] VITALS: BP 124/75
[2018-09-25 05:30] LABS: HEMATOCRIT 34.8 % (37.0-47.0); HEMOGLOBIN 11.3 g/dl (12.0-16.0); IMMATURE GRANULOCYTES 0.4 % (0.0-5.0); MEAN CELL VOLUME 84.9 fL CALC (80.0-100.0); MEAN CORPUSCULAR HGB 27.6 pG CALC (26.0-32.0); MEAN CORPUSCULAR HGB CONC 32.5 g/L CALC (32.0-36.0); NEUT# 4.47 thou/uL (2.00-7.15); RED BLOOD COUNT 4.1 mill/uL (4.20-5.60); RED CELL DISTRI WIDTH 13.1 % (11.5-15.5)
[2018-09-25 05:31] LABS: ALKALINE PHOSPHATASE 115 u/l (38-126); ANION GAP 13 (6-22 (CALC)); BILIRUBIN, TOTAL 0.2 mg/dL (0.0-1.4); BUN 20 mg/dL (7-17); BUN/CREATININE RATIO 30 (12-20 (CALC)); CARBON DIOXIDE 25 mmol/l (22-30); CHLORIDE 107 mmol/l (95-108); CREATININE 0.7 mg/dL (0.5-1.0); GFR > 60 ML/MIN (>=60 (CALC)); GFR FOR AFR.AMER. > 60 ML/MIN (>=60 (CALC)); MAGNESIUM 1.6 mg/dL (1.6-2.3); POTASSIUM 4.4 mmol/l (3.5-5.1); SGOT/AST 14 u/l (14-36); SODIUM 140 mmol/l (137-146); TOTAL PROTEIN 6.3 g/dL (6.3-8.2)
[2018-09-25 05:33] LABS: ALBUMIN 3.1 g/dL (3.2-5.0)
[2018-09-25 07:55] VITALS: BP 133/67
[2018-09-25 10:51] VITALS: BP 148/94
[2018-09-25] MEDS ORDERED: ZESTRIL/PRIN5 MG/TA1 PO (13:01)
[2018-09-25] MEDS ORDERED: KEFLEX500 MG PO ×2 (13:02→13:23)
== END 2018-09-25 13:29 | disposition home or self-care (01) ==
LOC: ED 18:27 → ED-I 20:00 → ED 20:20 → MS2 20:21
PROVIDERS: Internal Medicine Nephrology; ADMIT Internal Medicine; ATTEND Internal Medicine
DX: R07.89 Other chest pain (principal); N39.0 Urinary tract infection, site not specified; L03.031 Cellulitis of right toe; I10 Essential (primary) hypertension; E11.40 Type 2 diabetes mellitus with diabetic neuropathy, unspecified; E78.5 Hyperlipidemia, unspecified; F43.10 Post-traumatic stress disorder, unspecified; M19.90 Unspecified osteoarthritis, unspecified site; F41.1 Generalized anxiety disorder; B96.20 Unspecified Escherichia coli [E. coli] as the cause of diseases classified elsewhere; E66.9 Obesity, unspecified; Z68.37 Body mass index [BMI] 37.0-37.9, adult; R06.02 Shortness of breath
CPT/HCPCS: G0378; J1335

== ENCOUNTER 2018-10-25 16:14 | Emergency (ER) | payer MEDICAID ==
[~2018-10-25] VITALS: Ht 165.1 cm; Wt 102.0 kg
[~2018-10-25 16:14] MED LIST changes: +KEFLEX500 MG PO; +ZESTRIL/PRIN5 MG/TA1 PO
[2018-10-25 16:49] LABS: URINE BILIRUBIN - DIPSTICK NEGATIVE (NEGATIVE); URINE BLOOD DIPSTICK TRACE-INTACT (NEGATIVE); URINE COLOR YELLOW; URINE GLUCOSE - DIPSTICK NEGATIVE (NEGATIVE); URINE KETONE TRACE mg/dL (NEGATIVE); URINE LEUK ESTERASE TRACE (NEGATIVE); URINE NITRITE - DIPSTICK NEGATIVE (Negative); URINE PROTEIN - DIPSTICK 100 mg/dL (NEG-TRACE); URINE SPECIFIC GRAVITY >=1.030; URINE UROBILINOGEN - DIPSTICK 0.2 E.U./dL (0.2)
[2018-10-25 16:56] LABS: URINE BACTERIA FEW hpf; URINE SQUAMOUS EPITHELIAL CELL FEW EPI/hpf (0-FEW)
[2018-10-25] MEDS ORDERED: LISINOPRIL5 MG PO (16:56)
[2018-10-25] MEDS ORDERED: GABAPENTIN100 MG PO (16:56)
[2018-10-25] MEDS ORDERED: CYMBALTA30 MG PO (16:57)
[2018-10-25] MEDS ORDERED: ASPIRIN81 MG PO (16:57)
[2018-10-25] MEDS ORDERED: STRATTERA80 MG PO (16:58)
[2018-10-25] MEDS ORDERED: BUPROPION HYDR100 MG PO (16:58)
[2018-10-25] MEDS ORDERED: DIFLUCAN100 M1 PO (17:12)
[2018-10-25] MEDS ORDERED: CEPHALEXIN500 M1 PO (17:12)
[2018-10-25 17:42] VITALS: BP 132/82
== END 2018-10-25 17:42 | disposition home or self-care (01) ==
LOC: ED 16:14
PROVIDERS: Family Medicine
DX: S40.012A Contusion of left shoulder, initial encounter (principal); N39.0 Urinary tract infection, site not specified; I10 Essential (primary) hypertension; E11.40 Type 2 diabetes mellitus with diabetic neuropathy, unspecified; F43.10 Post-traumatic stress disorder, unspecified; M19.90 Unspecified osteoarthritis, unspecified site; W01.198A Fall on same level from slipping, tripping and stumbling with subsequent striking against other object, initial encounter; Y92.009 Unspecified place in unspecified non-institutional (private) residence as the place of occurrence of the external cause

== ENCOUNTER 2018-11-07 14:57 | Emergency (ER) | payer MEDICAID ==
[~2018-11-07] VITALS: Ht 165.1 cm; Wt 100.8 kg
[~2018-11-07 14:57] MED LIST changes: +ASPIRIN81 MG PO; +BUPROPION HYDR100 MG PO; +DIFLUCAN100 M1 PO; +GABAPENTIN100 MG PO; +STRATTERA80 MG PO
[2018-11-07 15:37] LABS: URINE BILIRUBIN - DIPSTICK NEGATIVE (NEGATIVE); URINE BLOOD DIPSTICK MODERATE (NEGATIVE); URINE COLOR YELLOW; URINE GLUCOSE - DIPSTICK 500 mg/dL (NEGATIVE); URINE KETONE NEGATIVE (NEGATIVE); URINE NITRITE - DIPSTICK NEGATIVE (Negative); URINE PROTEIN - DIPSTICK 100 mg/dL (NEG-TRACE); URINE SPECIFIC GRAVITY >=1.030; URINE UROBILINOGEN - DIPSTICK 0.2 E.U./dL (0.2)
[2018-11-07 15:42] LABS: URINE LEUK ESTERASE SMALL (NEGATIVE)
[2018-11-07] MEDS ORDERED: AMOXICILLIN875 MG PO (15:51)
[2018-11-07] MEDS ORDERED: LOSARTAN POT25 MG PO (15:53)
[2018-11-07] MEDS ORDERED: KETOCONAZOLE2 % EX (15:53)
[2018-11-07] MEDS ORDERED: MUPIROCIN2 % EX (15:53)
[2018-11-07] MEDS ORDERED: NEURONTIN300 MG PO (15:54)
[2018-11-07] MEDS ORDERED: IBUPROFEN600 MG PO (15:54)
[2018-11-07] MEDS ORDERED: BUPROPION HCL300 MG PO (15:56)
[2018-11-07] MEDS ORDERED: ATOMOXETINE60 MG PO (15:56)
[2018-11-07] MEDS ORDERED: ATORVASTATIN CA40 MG PO (16:00)
[2018-11-07] MEDS ORDERED: NAPROXEN500 MG PO (16:00)
[2018-11-07 16:18] LABS: URINE BACTERIA RARE hpf; URINE RBC TNTC RBC/hpf (0-5); URINE SQUAMOUS EPITHELIAL CELL FEW EPI/hpf (0-FEW)
[2018-11-07] MEDS ORDERED: BACTRIM DS1 TAB PO (16:41)
[2018-11-07] MEDS ORDERED: PYRIDIUM200 MG PO (16:41)
[2018-11-07] MEDS ORDERED: VENTOLIN HFA IN (16:41)
[2018-11-07 16:45] VITALS: BP 121/74
== END 2018-11-07 16:45 | disposition home or self-care (01) ==
LOC: ED 14:57
PROVIDERS: Family Medicine
DX: N39.0 Urinary tract infection, site not specified (principal); J06.9 Acute upper respiratory infection, unspecified; I10 Essential (primary) hypertension; E11.40 Type 2 diabetes mellitus with diabetic neuropathy, unspecified; B96.20 Unspecified Escherichia coli [E. coli] as the cause of diseases classified elsewhere; Z16.12 Extended spectrum beta lactamase (ESBL) resistance; Z87.440 Personal history of urinary (tract) infections; R30.0 Dysuria

== ENCOUNTER 2019-04-20 14:13 | Emergency (ER) | payer MEDICAID ==
[~2019-04-20] VITALS: Ht 165.1 cm; Wt 100.0 kg
[~2019-04-20 14:13] MED LIST changes: +AMOXICILLIN875 MG PO; +ATOMOXETINE60 MG PO; +IBUPROFEN600 MG PO; +KETOCONAZOLE2 % EX; +LOSARTAN POT25 MG PO; +MUPIROCIN2 % EX; +NAPROXEN500 MG PO; +NEURONTIN300 MG PO; +VENTOLIN HFA IN
[2019-04-20] MEDS ORDERED: LISINOPRIL5 MG PO (15:28)
[2019-04-20] MEDS ORDERED: ATORVASTATIN CA20 MG PO (15:29)
[2019-04-20] MEDS ORDERED: ALPRAZOLAM0.5 M2 PO (15:29)
[2019-04-20] MEDS ORDERED: DULOXETINE HCL60 MG PO (15:33)
[2019-04-20] MEDS ORDERED: TRAZODONE50 MG PO (15:34)
[2019-04-20] MEDS ORDERED: TRAMADOL HYDROC50 MG PO (16:09)
[2019-04-20 16:16] VITALS: BP 131/84
== END 2019-04-20 16:16 | disposition home or self-care (01) ==
LOC: ED 14:13
DX: S86.912A Strain of unspecified muscle(s) and tendon(s) at lower leg level, left leg, initial encounter (principal); M17.12 Unilateral primary osteoarthritis, left knee; I10 Essential (primary) hypertension; E11.40 Type 2 diabetes mellitus with diabetic neuropathy, unspecified; W19.XXXA Unspecified fall, initial encounter; Z79.4 Long term (current) use of insulin

== ENCOUNTER 2019-05-04 01:34 | Emergency (ER) | payer MEDICAID ==
[~2019-05-04] VITALS: Ht 165.1 cm; Wt 104.0 kg
[~2019-05-04 01:34] MED LIST changes: +ALPRAZOLAM0.5 M2 PO; +ATORVASTATIN CA20 MG PO; +DULOXETINE HCL60 MG PO; +TRAZODONE50 MG PO
[2019-05-04] MEDS ORDERED: IBUPROFEN600 MG PO (03:39)
[2019-05-04 04:13] VITALS: BP 154/71
== END 2019-05-04 04:11 | disposition home or self-care (01) ==
LOC: ED 01:34
DX: S93.402A Sprain of unspecified ligament of left ankle, initial encounter (principal); I10 Essential (primary) hypertension; E11.40 Type 2 diabetes mellitus with diabetic neuropathy, unspecified; X50.0XXA Overexertion from strenuous movement or load, initial encounter; Z79.4 Long term (current) use of insulin

== ENCOUNTER 2019-07-18 13:40 | Emergency (ER) | payer MEDICAID ==
[~2019-07-18] VITALS: Ht 165.1 cm; Wt 150.0 kg
[2019-07-18 14:12] LABS: URINE BILIRUBIN - DIPSTICK NEGATIVE (NEGATIVE); URINE BLOOD DIPSTICK MODERATE (NEGATIVE); URINE COLOR YELLOW; URINE GLUCOSE - DIPSTICK NEGATIVE (NEGATIVE); URINE KETONE TRACE mg/dL (NEGATIVE); URINE PROTEIN - DIPSTICK >=300 mg/dL (NEG-TRACE); URINE SPECIFIC GRAVITY >=1.030; URINE UROBILINOGEN - DIPSTICK 0.2 E.U./dL (0.2)
[2019-07-18 14:16] LABS: URINE LEUK ESTERASE SMALL (NEGATIVE); URINE NITRITE - DIPSTICK POSITIVE (Negative)
[2019-07-18 14:20] VITALS: BP 155/93
[2019-07-18] MEDS ORDERED: MACRODANTIN100 MG PO (14:32)
[2019-07-18] MEDS ORDERED: DIFLUCAN150 MG PO (14:40)
[2019-07-18 15:30] LABS: URINE BACTERIA MODERATE hpf; URINE RBC TNTC RBC/hpf (0-5); URINE SQUAMOUS EPITHELIAL CELL FEW EPI/hpf (0-FEW)
== END 2019-07-18 15:00 | disposition home or self-care (01) ==
LOC: ED 13:40
DX: N39.0 Urinary tract infection, site not specified (principal); I10 Essential (primary) hypertension; E11.40 Type 2 diabetes mellitus with diabetic neuropathy, unspecified; B96.20 Unspecified Escherichia coli [E. coli] as the cause of diseases classified elsewhere; Z79.4 Long term (current) use of insulin

== ENCOUNTER 2019-09-14 20:17 | Emergency (ER) | payer MEDICAID ==
[~2019-09-14] VITALS: Ht 165.1 cm; Wt 103.2 kg
[~2019-09-14 20:17] MED LIST changes: +MACRODANTIN100 MG PO
[2019-09-14] MEDS ORDERED: NAPROXEN500 MG PO (22:03)
[2019-09-14 22:12] LABS: URINE BILIRUBIN - DIPSTICK NEGATIVE (NEGATIVE); URINE BLOOD DIPSTICK SMALL (NEGATIVE); URINE COLOR YELLOW; URINE GLUCOSE - DIPSTICK >=1000 mg/dL (NEGATIVE); URINE KETONE NEGATIVE (NEGATIVE); URINE LEUK ESTERASE NEGATIVE (NEGATIVE); URINE NITRITE - DIPSTICK NEGATIVE (Negative); URINE PROTEIN - DIPSTICK NEGATIVE (NEG-TRACE); URINE SPECIFIC GRAVITY 1.015; URINE UROBILINOGEN - DIPSTICK 0.2 E.U./dL (0.2)
[2019-09-14 22:21] LABS: URINE SQUAMOUS EPITHELIAL CELL FEW EPI/hpf (0-FEW)
[2019-09-14] MEDS ORDERED: KEFLEX500 M1 PO (22:28)
[2019-09-14] MEDS ORDERED: DIFLUCAN100 M1 PO (22:48)
[2019-09-14 22:50] VITALS: BP 161/88
== END 2019-09-14 22:50 | disposition home or self-care (01) ==
LOC: ED 20:17
PROVIDERS: Emergency Medicine
DX: S46.212A Strain of muscle, fascia and tendon of other parts of biceps, left arm, initial encounter (principal); I10 Essential (primary) hypertension; E11.40 Type 2 diabetes mellitus with diabetic neuropathy, unspecified; X50.0XXA Overexertion from strenuous movement or load, initial encounter; Y93.89 Activity, other specified; Y92.009 Unspecified place in unspecified non-institutional (private) residence as the place of occurrence of the external cause; Z79.4 Long term (current) use of insulin; R30.0 Dysuria

== ENCOUNTER 2019-10-18 | Emergency (ER) | payer MEDICAID ==
[2019-10-18] MEDS ORDERED: ORPHENADRINE100 MG PO (15:55)
[2019-11-17] MEDS ORDERED: LYRICA100 MG PO (15:32)
== END 2019-10-18 16:09 | disposition home or self-care (01) ==
DX: S80.02XA Contusion of left knee, initial encounter (principal); I10 Essential (primary) hypertension; E11.40 Type 2 diabetes mellitus with diabetic neuropathy, unspecified; W01.0XXA Fall on same level from slipping, tripping and stumbling without subsequent striking against object, initial encounter; Y92.009 Unspecified place in unspecified non-institutional (private) residence as the place of occurrence of the external cause; Z79.4 Long term (current) use of insulin

== ENCOUNTER 2019-12-16 | Emergency (ER) | payer MEDICAID ==
[~2019-12-16] MED LIST changes: +LYRICA100 MG PO; +ORPHENADRINE100 MG PO
[2019-12-16 20:55] LABS: HEMATOCRIT 34.7 % (37.0-47.0); HEMOGLOBIN 11.1 g/dl (12.0-16.0); IMMATURE GRANULOCYTES 0.4 % (0.0-5.0); MEAN CELL VOLUME 82.4 fL CALC (80.0-100.0); MEAN CORPUSCULAR HGB 26.4 pG CALC (26.0-32.0); NEUT# 5.27 thou/uL (2.00-7.15); RED BLOOD COUNT 4.21 mill/uL (4.20-5.60); RED CELL DISTRI WIDTH 13.4 % (11.5-15.5)
[2019-12-16 21:13] LABS: ACT PARTIAL THROMBO TIME 24.2 SECONDS (20.0-32.5); INTERNATIONAL NORMALIZED RATIO 0.9 RATIO (0.7-1.3); PROTHROMBIN TIME 9.4 SECONDS (9.0-12.5)
[2019-12-16 21:14] LABS: ALBUMIN 3.7 g/dL (3.2-5.0); ALKALINE PHOSPHATASE 131 u/l (38-126); ANION GAP 13 (6-22 (CALC)); BILIRUBIN, TOTAL 0.2 mg/dL (0.0-1.4); BUN 18 mg/dL (8-23); BUN/CREATININE RATIO 25 (12-20 (CALC)); CARBON DIOXIDE 25 mmol/l (22-30); CHLORIDE 102 mmol/l (95-108); CREATININE 0.7 mg/dL (0.5-1.0); GFR > 60 ML/MIN (>=60 (CALC)); GFR FOR AFR.AMER. > 60 ML/MIN (>=60 (CALC)); POTASSIUM 4.7 mmol/l (3.5-5.1); SGOT/AST 24 u/l (9-36); SODIUM 135 mmol/l (137-146); TOTAL PROTEIN 6.6 g/dL (6.3-8.2)
== END 2019-12-16 21:50 | disposition home or self-care (01) ==
PROVIDERS: Family Medicine
DX: E11.40 Type 2 diabetes mellitus with diabetic neuropathy, unspecified (principal); R60.9 Edema, unspecified; I10 Essential (primary) hypertension; Z79.4 Long term (current) use of insulin

== ENCOUNTER 2020-03-21 19:56 | Emergency (ER) | payer MEDICAID ==
[~2020-03-21] VITALS: Ht 165.1 cm; Wt 100.0 kg
[2020-03-21 20:58] VITALS: BP 148/74
== END 2020-03-21 20:58 | disposition home or self-care (01) ==
LOC: ED 19:56
DX: R60.0 Localized edema (principal); D17.1 Benign lipomatous neoplasm of skin and subcutaneous tissue of trunk; I10 Essential (primary) hypertension; E11.40 Type 2 diabetes mellitus with diabetic neuropathy, unspecified; Z79.4 Long term (current) use of insulin

== ENCOUNTER 2020-04-22 12:56 | Emergency (ER) | payer MEDICAID ==
[~2020-04-22] VITALS: Ht 165.1 cm; Wt 100.0 kg
[2020-04-22] MEDS ORDERED: HYDROXYCHLOR200 M1 PO (13:46)
[2020-04-22] MEDS ORDERED: BACLOFEN20 MG PO (13:47)
[2020-04-22 14:18] LABS: HEMATOCRIT 35.9 % (37.0-47.0); HEMOGLOBIN 11.2 g/dl (12.0-16.0); IMMATURE GRANULOCYTES 0.4 % (0.0-5.0); MEAN CELL VOLUME 83.7 fL CALC (80.0-100.0); MEAN CORPUSCULAR HGB 26.1 pG CALC (26.0-32.0); MEAN CORPUSCULAR HGB CONC 31.2 g/dL CAL (32.0-36.0); NEUT# 4.94 thou/uL (2.00-7.15); RED BLOOD COUNT 4.29 mill/uL (4.20-5.60)
[2020-04-22 14:19] LABS: URINE BILIRUBIN - DIPSTICK NEGATIVE (NEGATIVE); URINE BLOOD DIPSTICK TRACE-INTACT (NEGATIVE); URINE COLOR YELLOW; URINE GLUCOSE - DIPSTICK NEGATIVE (NEGATIVE); URINE KETONE TRACE mg/dL (NEGATIVE); URINE LEUK ESTERASE NEGATIVE (NEGATIVE); URINE NITRITE - DIPSTICK NEGATIVE (Negative); URINE PH 5.5 (4.5-8.0); URINE PROTEIN - DIPSTICK 100 mg/dL (NEG-TRACE); URINE SPECIFIC GRAVITY >=1.030; URINE UROBILINOGEN - DIPSTICK 0.2 E.U./dL (0.2)
[2020-04-22 14:36] LABS: URINE SQUAMOUS EPITHELIAL CELL FEW EPI/hpf (0-FEW)
[2020-04-22 14:55] LABS: ALKALINE PHOSPHATASE 142 u/l (38-126); ANION GAP 12 (6-22 (CALC)); BILIRUBIN, TOTAL 0.4 mg/dL (0.0-1.4); BUN 28 mg/dL (8-23); BUN/CREATININE RATIO 30 (12-20 (CALC)); CARBON DIOXIDE 24 mmol/l (22-30); CHLORIDE 105 mmol/l (95-108); GFR 56 ML/MIN (>=60 (CALC)); GFR FOR AFR.AMER. > 60 ML/MIN (>=60 (CALC)); LIPASE 55 u/l (23-300); POTASSIUM 4.8 mmol/l (3.5-5.1); SGOT/AST 29 u/l (9-36); SODIUM 135 mmol/l (137-146)
[2020-04-22] MEDS ORDERED: CEPHALEXIN500 M1 PO (17:20)
[2020-04-22] MEDS ORDERED: PROTONIX20 M1 PO ×2 (17:21)
[2020-04-22 17:34] VITALS: BP 124/63
== END 2020-04-22 17:34 | disposition home or self-care (01) ==
LOC: ED 12:56
PROVIDERS: Family Medicine
DX: R10.13 Epigastric pain (principal); K82.8 Other specified diseases of gallbladder; N39.0 Urinary tract infection, site not specified; I10 Essential (primary) hypertension; E11.40 Type 2 diabetes mellitus with diabetic neuropathy, unspecified; Z79.4 Long term (current) use of insulin
CPT/HCPCS: Q9967

== ENCOUNTER 2020-05-28 20:24 | Observation (INO) | payer MEDICAID ==
[~2020-05-28] VITALS: Ht 165.1 cm; Wt 99.5 kg
[~2020-05-28 20:24] MED LIST changes: +BACLOFEN20 MG PO; +PROTONIX20 M1 PO
--- NOTE | 2020-05-28 20:38 | NUR ---
AMB TO ROOM 9 WITH STEADY GAIT.
[2020-05-28] MEDS ORDERED: BACTRIM DS1 TAB PO (20:39)
--- NOTE | 2020-05-28 21:07 | NUR ---
Labs drawn, antibiotics given. patient waiting for results.
[2020-05-28 21:15] LABS: HEMATOCRIT 35.2 % (37.0-47.0); HEMOGLOBIN 11.3 g/dl (12.0-16.0); IMMATURE GRANULOCYTES 0.3 % (0.0-5.0); MEAN CELL VOLUME 82.2 fL CALC (80.0-100.0); MEAN CORPUSCULAR HGB 26.4 pG CALC (26.0-32.0); MEAN CORPUSCULAR HGB CONC 32.1 g/dL CAL (32.0-36.0); NEUT# 6.61 thou/uL (2.00-7.15); RED BLOOD COUNT 4.28 mill/uL (4.20-5.60)
[2020-05-28 21:21] LABS: ALBUMIN 3.9 g/dL (3.2-5.0); ALKALINE PHOSPHATASE 154 u/l (38-126); ANION GAP 13 (6-22 (CALC)); BILIRUBIN, TOTAL 0.5 mg/dL (0.0-1.4); BUN 31 mg/dL (8-23); BUN/CREATININE RATIO 28 (12-20 (CALC)); CARBON DIOXIDE 24 mmol/l (22-30); CHLORIDE 101 mmol/l (95-108); CREATININE 1.1 mg/dL (0.5-1.0); GFR 50 ML/MIN (>=60 (CALC)); GFR FOR AFR.AMER. > 60 ML/MIN (>=60 (CALC)); POTASSIUM 4.9 mmol/l (3.5-5.1); SGOT/AST 24 u/l (9-36); SODIUM 133 mmol/l (137-146); TOTAL PROTEIN 6.7 g/dL (6.3-8.2)
--- NOTE | 2020-05-28 21:26 | NUR ---
The patient sts that she does not have any pain at this time 0
[2020-05-28] MEDS ORDERED: LANTUS100 UNIT/M (21:38)
--- NOTE | 2020-05-28 22:00 | NUR ---
The patient sts that she is comfortable at this time. , waiting for room.
--- NOTE | 2020-05-28 23:09 | NUR ---
The patient is comfortable, waiting to be transported to her room. Waiting to give report to the floor.
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
--- NOTE | 2020-05-28 23:34 | NUR ---
The patient sts that she is having cramping in her legs. ER doctor informed, no further orders given. The patient sts that she takes potassium but does not know the dosage.
--- NOTE | 2020-05-28 23:48 | NUR ---
report given to
--- NOTE | 2020-05-28 23:54 | NUR ---
Pt. ordered levamir, not given, not in ER formulary. Charge nurse aware.
[2020-05-29 00:22] VITALS: BP 125/73
--- NOTE | 2020-05-29 03:30 | NUR ---
PATIENT RESTING SOUNDLY IN BED WITH EYES CLOSED AT THIS TIME. NS INFUSING @ 100ML/HR WITHOUT DIFFICULTY--PIV SITE PATENT TO LEFT AC--SITE UNREMARKABLE. DENIES ANY PAIN OR DISCOMFORT--TO BEGIN ABT THERAPY THIS AM RELATED TO POSSIBLE ABDOMINAL ABSCESS. WILL CONT TO MONITOR FOR ANY FURTHER CHANGES.
[2020-05-29 05:14] VITALS: BP 138/74
[2020-05-29 05:50] LABS: URINE BILIRUBIN - DIPSTICK NEGATIVE (NEGATIVE); URINE BLOOD DIPSTICK TRACE-INTACT (NEGATIVE); URINE COLOR YELLOW; URINE GLUCOSE - DIPSTICK >=1000 mg/dL (NEGATIVE); URINE KETONE NEGATIVE (NEGATIVE); URINE LEUK ESTERASE NEGATIVE (NEGATIVE); URINE NITRITE - DIPSTICK NEGATIVE (Negative); URINE PROTEIN - DIPSTICK 100 mg/dL (NEG-TRACE); URINE UROBILINOGEN - DIPSTICK 0.2 E.U./dL (0.2)
[2020-05-29 05:55] LABS: ANION GAP 11 (6-22 (CALC)); BUN 28 mg/dL (8-23); BUN/CREATININE RATIO 33 (12-20 (CALC)); CARBON DIOXIDE 24 mmol/l (22-30); CHLORIDE 105 mmol/l (95-108); CREATININE 0.9 mg/dL (0.5-1.0); GFR > 60 ML/MIN (>=60 (CALC)); GFR FOR AFR.AMER. > 60 ML/MIN (>=60 (CALC)); POTASSIUM 4.6 mmol/l (3.5-5.1); SODIUM 135 mmol/l (137-146)
[2020-05-29 05:58] LABS: URINE BACTERIA FEW hpf; URINE EPITHELIAL CELLS FEW EPI/hpf (0-FEW); URINE MUCUS MODERATE hpf (NONE-FEW); URINE WBC 0-2 WBC/hpf (0-5)
--- NOTE | 2020-05-29 08:50 | NUR ---
RECEIVED REPORT FROM KELLY AND PT IN BED WITH EYES OPEN AND ATE 100% OF BREAKFAST. MEDICATIONS BEING ADMINISTERED AND NO COMPLICATIONS NOTED.
[2020-05-29 09:13] VITALS: BP 136/54
--- NOTE | 2020-05-29 14:00 | NUR ---
DR. MAYO IN AND PERFORMED I AND D WITH PT TO ABSCESS. PT TOLERATED PROCEDURE WELL AND DRESSING IS INTACT WITH NO COMPLICATIONS NOTED. MEAL AND FLUID INTAKE GOOD. AMBULATES TO TOILET WITH NO COMPLICATIONS NOTED. CALL LIGHT WITHIN REACH. WILL CONTINUE TO OBSERVE.
[2020-05-29 14:58] VITALS: BP 158/74
--- NOTE | 2020-05-29 18:00 | NUR ---
PT IN BED WITH EYES CLOSED. NO S/S OF DISTRESS. PT HAS SERVCE DOG AT BEDSIDE. SERVICE CARD FOR ANIMAL IN CHART. WILL CONTINUE TO OBSERVE
[2020-05-29 19:30] VITALS: BP 156/61
--- NOTE | 2020-05-29 20:00 | NUR ---
PATIENT ALERT, VEBRAL, ABLE TO MAKE NEEDS KNOWN. ABLE TO TOLERATE MEDS WELL WHOLE. FSBS ORDERED WITH SSI PRN--NO S/S OF GLYCEMIC REACTION NOTED. REMAINS NON-COMPLIANT WITH HERT DIET DESPITE ANY REDIRECTION PROVIDED. CONT ON IV ABT THERAPY RELATED TO ABDOMINAL ABSCESS WITH NO SIDE EFFECTS NOTED-AFEBRILE. PIV SITE PATENT TO LEFT AC--FLUSHES WELL--SITE UNREMARKABLE. DRSG TO ABDOMEN C/D/I--NO DRAINAGE NOTED. DID C/O PAIN--02/13--HOWEVER ONLY HAS TYLENOL FOR PAIN-STATES "THAT ISNT GOING TO DO ANYTHING." DECLINED TAKING ANYTHING FOR PAIN--THIS CROP GRAIN OR LIVESTOCK FARMER TO CONTACT MD FOR MORE THERAPUTIC PAIN REGIMEN FOR PATIENT. WILL CONT TO MONITOR FOR ANY FURTHER CHANGES.
--- NOTE | 2020-05-30 | NUR ---
PATIENT AWAKE AND SCROLLING THROUGH HER CELL PHONE AT THIS TIME--SERVICE DOG IN BED WITH HER. DR ACOSTA GAVE ORDERS FOR PATIENT C/O PAIN TO ABDOMEN--LORTAB 5/325 MG PO Q 4 HRS PRN MODERATE PAIN--MEDICATED @ 2330--POSITIVE EFFECT. NS INFUSING WELL @ 100ML/HR--PIV SITE PATENT TO LEFT AC--SITE UNREMARKABLE. DRSG TO ABDOMEN C/D/I--NO DRAINAGE NOTED--PATIENT WISHES TO HAVE DRSG CHANGE IN THE AM. WILL ATTEMPT ONCE AGAIN BEFORE SHIFT CHANGE. WILL CONT TO MONITOR FOR FURTHER CHANGES.
--- NOTE | 2020-05-30 04:00 | NUR ---
PATIENT RESTED SOUNDLY IN BED WITH EYES CLOSED AT THIS TIME. DRSG CHANGE DONE TO ABDOMINAL ABSCESS ORDRED--AREA WITHOUT ANY S/S OF INFECTION--SMALL AMOUNT OF BLOODY DRAINAGE NOTED WITH CLEANSING THE AREA--DID C/O PAIN PRIOR TO DRSG CHANGE--MEDICATED PRIOR FOR COMFORT. C/O FEELING LIGHT HEADED AND WEAK THIS AM WELL--BS AT THAT TIME WAS 92 WHICH IS ON THE LOWER SIDE FOR PATIENT'S BASELINE--PATIENT HAD SNACK AND JUICE--STATES SHE FEELS BETTER. WILL CONT TO MONITOR FOR ANY FURTHER CHANGES.
[2020-05-30 04:37] VITALS: BP 152/83
[2020-05-30 05:49] LABS: HEMATOCRIT 38.7 % (37.0-47.0); MEAN CELL VOLUME 84.1 fL CALC (80.0-100.0); MEAN CORPUSCULAR HGB 26.1 pG CALC (26.0-32.0); RED BLOOD COUNT 4.6 mill/uL (4.20-5.60)
[2020-05-30 06:05] LABS: ANION GAP 12 (6-22 (CALC)); BUN 25 mg/dL (8-23); BUN/CREATININE RATIO 29 (12-20 (CALC)); CARBON DIOXIDE 27 mmol/l (22-30); CHLORIDE 106 mmol/l (95-108); CREATININE 0.9 mg/dL (0.5-1.0); GFR > 60 ML/MIN (>=60 (CALC)); GFR FOR AFR.AMER. > 60 ML/MIN (>=60 (CALC)); MAGNESIUM 1.9 mg/dL (1.6-2.3); POTASSIUM 4.1 mmol/l (3.5-5.1); SODIUM 141 mmol/l (137-146)
[2020-05-30 07:30] VITALS: BP 157/75
--- NOTE | 2020-05-30 07:30 | NUR ---
RECIEVED REPORT FROM ANGELICA CODY. PT RESTING IN LOW FOWLERS POSITION WITH SERVICE DOG AT BEDSIDE UPON ENETRING ROOM. INTRODUCED SELF TO PT AND DISCUSSSED POC. ASSESSMENT AND VITALS COMPLETED AT THIS TIME. RESPIRATIONS ARE EVEN AND UNLABORED WITH NO SIGNS OF DISTRESS. LUNG SOUNDS ARE CLEAR. HEART RHYTHM IS NORMAL. BOWEL SOUNDS ARE ACTIVE IN ALL QUADRANTS, LAST REPORTED BM 05/30/20. RADIAL AND PEDAL PULSES ARE STRONG WITH NORMAL CAPILLARY REFILL. #22 IN LAC RUNNING WITH NS AT 100 ML ORDERED, SITE APPEARS HEALTHY AND PATENT.PT DENIES ANY PAIN OR DISCOMFORTS AT THIS TIME. ALL SAFETY PRECAUTIONS ARE IN PLACE WITH CALL LIGHT IN REACH. WILL CONTINUE TO MONITOR
--- NOTE | 2020-05-30 08:43 | NUR ---
DR EMERSON AT BEDSIDE DISCUSSING POC WITH PT
[2020-05-30 10:30] VITALS: BP 150/83
--- NOTE | 2020-05-30 11:13 | NUR ---
PT EDUCATED ON DISCHARGE INSTRUCTIONS. PT VERBALIZED UNDERSTANDING. IV REMOVED WITH CATHATER STILL INTACT. PT TOELRTAED WELL. PT REQUEST TO STAY FOR LUNCH BEFORE CALLING FOR RIDE. ALL SAFETY PRECAUTIONS ARE IN PLACE WITH CALL LIGHT IN REACH. WILL CONTINUE TO MONITOR
--- NOTE | 2020-05-30 12:04 | NUR ---
Discharge instructions given. Patient verbalizes understanding of same. Discharged in stable condition via Wheelchair to Home with staff. All belongings sent with pt. PT DISCHARGED WITH ALL BELONGINGS AND DISCHARGE INSTRUCTIONS.
== END 2020-05-30 12:04 | disposition home or self-care (01) ==
LOC: ED 20:24 → ED-I 21:20 → ED 21:33 → MS2 21:34
PROVIDERS: Emergency Medicine; Nurse Practitioner; ADMIT Internal Medicine; ATTEND Internal Medicine
DX: T80.29XA Infection following other infusion, transfusion and therapeutic injection, initial encounter (principal); L02.211 Cutaneous abscess of abdominal wall; L03.311 Cellulitis of abdominal wall; I10 Essential (primary) hypertension; E11.65 Type 2 diabetes mellitus with hyperglycemia; E11.40 Type 2 diabetes mellitus with diabetic neuropathy, unspecified; E78.5 Hyperlipidemia, unspecified; Y84.8 Other medical procedures as the cause of abnormal reaction of the patient, or of later complication, without mention of misadventure at the time of the procedure; Z79.4 Long term (current) use of insulin; Z11.59 Encounter for screening for other viral diseases
CPT/HCPCS: G0378

== ENCOUNTER 2020-06-15 07:15 | Emergency (ER) | payer MEDICAID ==
[~2020-06-15] VITALS: Ht 165.1 cm; Wt 99.0 kg
[~2020-06-15 07:15] MED LIST changes: +LANTUS100 UNIT/M
[2020-06-15 07:47] LABS: HEMOGLOBIN 10.5 g/dl (12.0-16.0); IMMATURE GRANULOCYTES 0.3 % (0.0-5.0); MEAN CELL VOLUME 83.5 fL CALC (80.0-100.0); MEAN CORPUSCULAR HGB 25.8 pG CALC (26.0-32.0); MEAN CORPUSCULAR HGB CONC 30.9 g/dL CAL (32.0-36.0); NEUT# 10.36 thou/uL (2.00-7.15); RED BLOOD COUNT 4.07 mill/uL (4.20-5.60); RED CELL DISTRI WIDTH 13.5 % (11.5-15.5)
[2020-06-15 08:04] LABS: BUN 28 mg/dL (8-23); BUN/CREATININE RATIO 25 (12-20 (CALC)); CARBON DIOXIDE 22 mmol/l (22-30); CHLORIDE 99 mmol/l (95-108); CREATININE 1.1 mg/dL (0.5-1.0); GFR 50 ML/MIN (>=60 (CALC)); GFR FOR AFR.AMER. > 60 ML/MIN (>=60 (CALC))
[2020-06-15 08:08] VITALS: BP 155/86
[2020-06-15 08:11] LABS: ANION GAP 17 (6-22 (CALC)); POTASSIUM 5.1 mmol/l (3.5-5.1); SODIUM 133 mmol/l (137-146)
== END 2020-06-15 08:22 | disposition short-term general hospital (02) ==
LOC: ED 07:15
PROVIDERS: Family Medicine
DX: I21.3 ST elevation (STEMI) myocardial infarction of unspecified site (principal); E11.40 Type 2 diabetes mellitus with diabetic neuropathy, unspecified; I10 Essential (primary) hypertension; Z79.4 Long term (current) use of insulin
CPT/HCPCS: J1644